=== PATIENT | female | born 1985 | race Caucasian/White ===

== ENCOUNTER 2020-12-18 12:43 | Emergency (ER) | payer OTHER, SELFPAY ==
[~2020-12-18] VITALS: Ht 170.2 cm; Wt 69.4 kg
[2020-12-18 12:43] VITALS: BP 109/65
--- OUTSIDE RECORDS SUMMARY | 2020-12-18 12:49 | CCD ---
Author Author [facility] Organization [facility] Address Unknown Phone Unavailable Support Name Relationship Address Phone SOFIA BRUNER Next Of Kin [address] [phone] PRASANNA Next Of Kin [address] [place] [address] SELF EMPLOYED Next [place] [address] [place] [address] ST Next Of Kin Unknown Unavailable JANES CERVANTES Next Of Kin [address] [place] [address] UE Next Of Kin Unknown Unavailable PRADHAN HENRY Next Of Kin [address] [id number] Janes Cervantes [facility] [address] [place] [address] Unavailable Re-disclosure Warning The records that you are about to access may contain information from federally-assisted alcohol or drug abuse programs. If such information is present, then the following federally mandated warning applies: This information has been disclosed to you from records protected by federal confidentiality rules (42 CFR part 2). The federal rules prohibit you from making any further disclosure of this information unless further disclosure is expressly permitted by the written consent of the person to whom it pertains or as otherwise permitted by 42 CFR part 2. A general authorization for the release of medical or other information is NOT sufficient for this purpose. The Federal rules restrict any use of the information to criminally investigate or prosecute any alcohol or drug abuse patient.The records that you are about to access may contain highly sensitive health information, the redisclosure of which is protected by Article 27-F of the [facility] Public Health law. If you continue you may have access to information: Regarding HIV / AIDS; Provided by facilities licensed or operated by the [facility] Office of Mental Health; or Provided by the [facility] Office for People With Developmental Disabilities. If such information is present, then the following [facility] mandated warning applies: This information has been disclosed to you from confidential records which are protected by state law. State law prohibits you from making any further disclosure of this information without the specific written consent of the person to whom it pertains, or as otherwise permitted by law. Any unauthorized further disclosure in violation of state law may result in a fine or assisted sentence or both. A general authorization for the release of medical or other information is NOT sufficient authorization for further disc losure. Encounters Encounter Providers Location Date Indications Data Source(s ) Outpatient [address] [facility] [address] [place] [address] 06/13/2020 12:00:00 AM EDT eCW1 ([facility]) [facility]patient [address] [facility] [address] [place] [address] 06/12/2020 12:00:00 AM EDT eCW1 ([facility]) [place] [address] [facility] [address] 06/11/2020 12:00:00 AM EDT eCW1 ([facility]) [place] [address] [facility] [address] 04/30/2020 12:00:00 AM EDT eCW1 ([facility]) Insurance Providers Payer name Policy type / Coverage type Policy ID Covered libertarian ID Covered libertarian's relationship to thurman Policy [place] Plan Information FMA C/O TALL TREE ADMIN [id number] SP [id number] SELF PAY ONLY [id number] SP [id number] [employer] [place] [id number] SPO [id number] BC[facility] [id number] SPO [id number] BCBS [facility] UNAVAILABLE UNAVAILABLE UNHC COMMUNITY PLAN MCDO [id number] SP [id number] SELF PAY UNAVAILABLE SP UNAVAILA BLE MEDICAID [id number] SP [id number] HMO BLUE [id number] SP [id number] MEDICAID [id number] SP [id number] Social History Code Duration Value Status Description Data Source(s ) Smoking 04/30/2020 12:00:00 AM EDT UNK completed eCW1 ([facility]) Smoking 04/30/2020 12:00:00 AM EDT UNK completed eCW1 ([facility]) Vital Signs ID Date Data Source UNK Name Value Range Interpretation Code Description Data Source(s) Diastolic blood pressure mm[Hg] eCW1 ([facility]) Systolic blood pressure 102 mm[Hg] 102 mm[Hg] e CW1 ([facility]) Oxygen saturation in Arterial blood by Pulse oximetry 100 % 100 % eCW1 ([facility]) Heart rate 73 /min 73 /min eCW1 ([facility]) Body weight 149 [lb_av] 149 [lb_av] eCW1 ([facility]) Diastolic blood pressure 79 mm[Hg] 79 mm[Hg] eCW1 ([facility]) Systolic blood pressure 114 mm[Hg] 114 mm[Hg] e CW1 ([facility]) Body temperature 98.6 [degF] 98.6 [degF] eCW1 ( [facility]) Respiratory rate 16 /min 16 /min eCW1 ([facility]) Heart rate 82 /min 82 /min eCW1 ([facility]) Body mass index (BMI) [Ratio] 24.58 kg/m2 24.58 kg/m2 W1 ([facility]) Body height 65.5 [in_i] 65.5 [in_i] eCW1 ([facility]) Body weight [lb_av] eCW1 ([facility])
[2020-12-18] MEDS ORDERED: AMOXICILLIN 500 MG CAP PO ONE (13:30)
[2020-12-18] MEDS ORDERED: AMOX500C PO (13:33)
[2020-12-18] MEDS ORDERED: PERI0.126 PO (13:33)
[2020-12-18] MEDS ORDERED: MAGICMW SSP (13:33)
--- OUTSIDE RECORDS SUMMARY | 2020-12-18 13:46 | CCD ---
Author Author [facility] Organization [facility] Address Unknown Phone Unavailable Support Name Relationship Address Phone SELF Next Of Kin Unknown Unavailable SOFIA BRUNER Next Of Kin [address] [place] [address] PRASANNA Next Of Kin [address] [phone] SELF EMPLOYED Next Of Kin [address] [place] [address] ST Next Of Kin Unknown Unavailable JANES CERVANTES Next Of Kin [address] [place] [address] UE Next Of Kin Unknown Unavailable HENRY PRADHAN [place] [address] Janes Cervantes [address] [address] [place] [address] Unavailable Re-disclosure Warning The records that you [...] is protected by Article 27-F of the [facility] Public Health law. If you continue you may have access to information: Regarding HIV / AIDS; Provided by facilities licensed or operated by the [facility] Office of Mental Health; or Provided by the [facility] Office for People With Developmental Disabilities. If such information is present, then the following [facility] mandated warning applies: This information has [...] law may result in a fine or retirement sentence or both. A general authorization for the release of medical or other information is NOT sufficient authorization for further disc losure. Encounters Encounter Providers Location Date Indications Data Source(s ) Outpatient [address] [facility] [address] [place] [address] 06/13/2020 12:00:00 AM EDT eCW1 ([facility]) Outpatient [address] [facility] [address] [place] [address] 06/12/2020 12:00:00 AM EDT eCW1 ([facility]) Unknown [address] [facility] [place] [address] 06/11/2020 12:00:00 AM EDT eCW1 ([facility]) [place]patient [address] [facility] [place] [address] 04/30/2020 12:00:00 AM EDT eCW1 ([facility]) Insurance Providers Payer name Policy type / Coverage type Policy ID Covered republican ID Covered republican's relationship to thurman Policy [place] Plan Information SELF PAY ONLY [id number] SP [id number] FMA C/O TALL TREE ADMIN [id number] SP [id number] [employer] [place] [id number] SPO YND [id number] BCBS [facility] [id number] SPO [id number] BCBS [facility] UNAVAILABLE UNAVAILABLE UNHC COMMUNITY PLAN MCDO [id number] SP [id number] SELF PAY UNAVAILABLE SP UNAVAILA BLE MEDICAID [id number] SP [id number] HMO BLUE [id number] SP [id number] MEDICAID [id number] SP [id number] Social History Code Duration Value Status Description Data Source(s ) Smoking 04/30/2020 12:00:00 AM EDT UNK completed eCW1 ([facility]) Smoking 04/30/2020 12:00:00 AM EDT UNK completed eCW1 ([facility]) Vital Signs ID Date Data Source UNK Name Value Range Interpretation Code Description Data Source(s) Diastolic blood pressure mm[Hg] eCW1 ([facility]) Systolic blood pressure 102 mm[Hg] 102 mm[Hg] e CW1 ([facility]) Oxygen saturation in Arterial blood by Pulse oximetry 100 % 100 % eCW1 ([facility]) Heart rate 73 /min 73 /min eCW1 ([facility]) Body weight 149 [lb_av] 149 [lb_av] eCW1 ([facility]) Diastolic blood pressure 79 mm[Hg] 79 mm[Hg] eCW1 ([facility]) Systolic blood pressure 114 mm[Hg] 114 mm[Hg] e CW1 ([facility]) Body temperature 98.6 [degF] 98.6 [degF] eCW1 ( [facility]) Respiratory rate 16 /min 16 /min eCW1 ([facility]) Heart rate 82 /min 82 /min eCW1 ([facility]) Body mass index (BMI) [Ratio] 24.58 kg/m2 24.58 kg/m2 W1 ([facility]) Body height 65.5 [in_i] 65.5 [in_i] eCW1 ([facility]) Body weight [lb_av] eCW1 ([facility])
== END 2020-12-18 13:46 | disposition home or self-care (01) ==
LOC: M ED 12:43
DX: K04.7 Periapical abscess without sinus (principal); K02.9 Dental caries, unspecified

== ENCOUNTER 2023-02-26 15:51 | Emergency (ER) | payer SELFPAY ==
[~2023-02-26] VITALS: Ht 172.7 cm; Wt 74.3 kg
[~2023-02-26 15:51] MED LIST: AMOX500C PO; MAGICMW SSP; PERI0.126 PO
[2023-02-26 15:52] VITALS: BP 134/66
[2023-02-26] MEDS ORDERED: AMOX500C PO (16:36)
== END 2023-02-26 16:48 | disposition home or self-care (01) ==
LOC: M ED 15:51
DX: J02.0 Streptococcal pharyngitis (principal); Z79.2 Long term (current) use of antibiotics; Z79.899 Other long term (current) drug therapy

== ENCOUNTER 2024-06-26 14:49 | Emergency (ER) | payer SELFPAY ==
[~2024-06-26] VITALS: Ht 172.7 cm; Wt 89.2 kg
[2024-06-26 17:24] VITALS: BP 118/67; TEMP 99.3; O2SAT 100
[2024-06-26] MEDS ORDERED: AMOX500C PO (17:54)
== END 2024-06-26 18:14 | disposition home or self-care (01) ==
LOC: M ED 14:49
DX: J02.0 Streptococcal pharyngitis (principal); Z79.2 Long term (current) use of antibiotics